=== PATIENT | female | born 1945 | race Asian ===

== ENCOUNTER 2016-08-05 21:09 | Outpatient (CLI) | payer MEDICARE, MEDICAID | END 2016-08-05 21:10 | disposition critical access hospital (66) | DX: R42 Dizziness and giddiness (principal); R11.2 Nausea with vomiting, unspecified; R51 Headache; R03.0 Elevated blood-pressure reading, without diagnosis of hypertension | CPT/HCPCS: A0425; A0429 ==

== ENCOUNTER 2016-08-05 21:25 | Inpatient (IN) | payer MEDICARE, MEDICAID ==
[2016-08-05] MEDS ORDERED: ONDANSETRON 4 MG/2 ML VIAL IVP STA (21:52)
[2016-08-05] MEDS ORDERED: SODIUM CHLORIDE 0.9% 500 ML IV STA (21:52)
[2016-08-05] MEDS ORDERED: ONDANSETRON 4 MG/2 ML VIAL ONE (21:58)
[2016-08-06] MEDS ORDERED: HYDROcod/ACETAM 5/325 MG TABLET PO PRN (01:10)
[2016-08-06] MEDS ORDERED: ONDANSETRON ODT 4 MG TABLET TL PRN (01:10)
[2016-08-06] MEDS ORDERED: ACETAMINOPHEN 325 MG TABLET PO PRN (01:10)
[2016-08-06] MEDS ORDERED: SODIUM CHLORIDE 0.9% 1,000 ML IV SCH ×2 (02:00→21:00)
[2016-08-06] MEDS: SODIUM CHLORIDE FLUSH 0.9% 10 ML SYRINGE IVP PRN (02:02)
[2016-08-06] MEDS: hydrALAZINE 25 MG TABLET PO PRN (02:48)
[2016-08-06] MEDS: SODIUM CHLORIDE FLUSH 0.9% 10 ML SYRINGE IVP SCH ×3 (06:34→21:11)
[2016-08-06] MEDS ORDERED: SACCHAROMYCES BOULARDII 250 MG CAPSULE PO SCH (08:00)
[2016-08-06] MEDS: SODIUM CHLORIDE 1 GM TABLET PO SCH ×2 (08:28→21:57)
[2016-08-06] MEDS: LOSARTAN 50 MG TABLET PO SCH ×2 (08:28→21:10)
[2016-08-06] MEDS: CARVEDILOL 12.5 MG TABLET PO SCH ×2 (08:28→21:08)
[2016-08-06] MEDS: POLYETHYLENE GLYCOL 3350 17 GM PACKET PO SCH (08:28)
[2016-08-06] MEDS: GABAPENTIN 300 MG CAPSULE PO SCH ×2 (08:28→21:10)
[2016-08-06] MEDS ORDERED: VALSARTAN 160 MG PO SCH (09:00)
[2016-08-06] MEDS ORDERED: NITROFURANTOIN MACROCRYSTAL 50 MG PO SCH (09:00)
[2016-08-07] MEDS: cefTRIAXone 1 GM in SODIUM CHLORIDE 0.9% MINIBAG 100 ML IV SCH ×2 (00:36→08:06)
[2016-08-07] MEDS: SODIUM CHLORIDE FLUSH 0.9% 10 ML SYRINGE IVP SCH ×3 (06:45→20:49)
[2016-08-07] MEDS: POLYETHYLENE GLYCOL 3350 17 GM PACKET PO SCH (08:05)
[2016-08-07] MEDS: GABAPENTIN 300 MG CAPSULE PO SCH ×2 (08:06→20:46)
[2016-08-07] MEDS: SODIUM CHLORIDE 1 GM TABLET PO SCH ×2 (08:06→20:47)
[2016-08-07] MEDS: CARVEDILOL 12.5 MG TABLET PO SCH ×2 (08:10→20:46)
[2016-08-07] MEDS: LOSARTAN 50 MG TABLET PO SCH ×2 (08:10→20:46)
[2016-08-07] MEDS ORDERED: MAGNESIUM SULFATE 1 GM in SODIUM CHLORIDE 0.9% 50 ML IV ONE (11:15)
[2016-08-07] MEDS: INSULIN ASPART 300 UNIT/3 ML PEN SUBQ SCH ×3 (11:45→20:47)
[2016-08-07] MEDS ORDERED: SODIUM CHLORIDE 0.9% 1,000 ML IV SCH (13:45)
[2016-08-07] MEDS ORDERED: MAGNESIUM SULFATE 2 GRAM 50 ML IV SCH (14:00)
[2016-08-07] MEDS ORDERED: MAGNESIUM SULFATE 2 GRAM 50 ML IV ONE (14:00)
[2016-08-08] MEDS: hydrALAZINE 25 MG TABLET PO PRN (00:07)
[2016-08-08] MEDS: SODIUM CHLORIDE FLUSH 0.9% 10 ML SYRINGE IVP SCH (06:52)
[2016-08-08] MEDS: INSULIN ASPART 300 UNIT/3 ML PEN SUBQ SCH ×2 (08:33→12:16)
[2016-08-08] MEDS: SODIUM CHLORIDE 1 GM TABLET PO SCH (08:39)
[2016-08-08] MEDS: cefTRIAXone 1 GM in SODIUM CHLORIDE 0.9% MINIBAG 100 ML IV SCH (08:39)
[2016-08-08] MEDS: POLYETHYLENE GLYCOL 3350 17 GM PACKET PO SCH (08:39)
[2016-08-08] MEDS: LOSARTAN 50 MG TABLET PO SCH (08:40)
[2016-08-08] MEDS: CARVEDILOL 12.5 MG TABLET PO SCH (08:40)
[2016-08-08] MEDS: GABAPENTIN 300 MG CAPSULE PO SCH (08:40)
[2016-08-08] MEDS: SODIUM CHLORIDE FLUSH 0.9% 10 ML SYRINGE IVP PRN (08:46)
[2016-08-08] MEDS ORDERED: MAGNESIUM OXIDE 400 MG TABLET PO SCH (12:00)
[2016-08-08] MEDS ORDERED: SULFAMETH/TRIMETH DS 800/160 MG TABLET PO SCH (12:30)
== END 2016-08-08 13:35 | disposition home health service (06) | DRG 644 ==
DX: E22.2 Syndrome of inappropriate secretion of antidiuretic hormone (principal); N39.0 Urinary tract infection, site not specified; B02.29 Other postherpetic nervous system involvement; E83.52 Hypercalcemia; E83.42 Hypomagnesemia; B96.89 Other specified bacterial agents as the cause of diseases classified elsewhere; E11.42 Type 2 diabetes mellitus with diabetic polyneuropathy; I10 Essential (primary) hypertension; E78.5 Hyperlipidemia, unspecified; F41.1 Generalized anxiety disorder; M19.90 Unspecified osteoarthritis, unspecified site; Z79.84 Long term (current) use of oral hypoglycemic drugs; Z79.82 Long term (current) use of aspirin; Z79.51 Long term (current) use of inhaled steroids; Z79.899 Other long term (current) drug therapy; Z85.72 Personal history of non-Hodgkin lymphomas; Z87.440 Personal history of urinary (tract) infections; Z66 Do not resuscitate

== ENCOUNTER 2016-08-17 14:30 | Outpatient (CLI) | payer MEDICARE, MEDICAID | END 2016-08-17 14:31 | DX: E22.2 Syndrome of inappropriate secretion of antidiuretic hormone (principal) ==

== ENCOUNTER 2016-08-17 14:30 | Outpatient (CLI) | payer MEDICARE, MEDICAID | END 2016-08-17 23:59 | disposition home or self-care (01) | DX: E83.42 Hypomagnesemia (principal); E83.52 Hypercalcemia ==

== ENCOUNTER 2016-08-19 14:21 | Outpatient (CLI) | payer MEDICARE, MEDICAID | END 2016-08-19 14:22 | DX: E87.5 Hyperkalemia (principal) ==

== ENCOUNTER 2016-09-02 08:50 | Outpatient (CLI) | payer MEDICARE, MEDICAID | END 2016-09-02 08:51 | disposition home or self-care (01) | DX: E22.2 Syndrome of inappropriate secretion of antidiuretic hormone (principal) ==

== ENCOUNTER 2016-09-08 21:14 | Emergency (ER) | payer MEDICARE, MEDICAID ==
--- NOTE | 2016-09-08 21:59 | XRAY Preliminary Report ---
Exam: XR Chest 1 View IMPRESSION: No change. No acute cardiopulmonary abnormality. [facility] SITE ID: [id number]
--- NOTE | 2016-09-08 22:01 | XRAY Report ---
EXAM: CHEST RADIOGRAPHY EXAM DATE: 09/08/2016 09:51 PM. CLINICAL HISTORY: Chest pain COMPARISON: 02/29/2016. TECHNIQUE: 1 view. FINDINGS: Lungs/Pleura: Low lung volumes. No significant change. Negative for edema or pneumothorax. Mediastinum: Heart size is upper normal. There is mild to moderate aortic arch atherosclerotic calcif ication and tortuosity. Other: None. IMPRESSION: No change. No acute cardiopulmonary abnormality. [facility] Referring Provider Line: [phone] SITE ID: [id number]
[2016-09-08 22:02] LABS: BASOPHILS % (AUTO) 0.8 %; EOSINOPHILS # (AUTO) 0.1 10^3/uL (0.0-0.7); EOSINOPHILS % (AUTO) 2.1 %; HCT - HEMATOCRIT 33.3 % (37.0-47.0); HGB - HEMOGLOBIN 11.1 g/dL (12.0-16.0); LYMPHOCYTES # (AUTO) 1.1 10^3/uL (1.5-3.5); LYMPHOCYTES % (AUTO) 22.9 %; MEAN CORPUSCULAR HEMOGLOBIN 29.3 pg (27.0-31.0); MEAN CORPUSCULAR HGB CONC 33.3 g/dL (32.0-36.0); MEAN CORPUSCULAR VOLUME 87.9 fL (81.0-99.0); MEAN PLATELET VOLUME 7.5 fL (7.9-10.8); MONOCYTES # (AUTO) 0.6 10^3/uL (0.0-1.0); MONOCYTES % (AUTO) 12.9 %; NEUTROPHILS # (AUTO) 2.9 10^3/uL (1.5-6.6); NEUTROPHILS % (AUTO) 61.3 %; NUCLEATED RED BLOOD CELLS AUTO 0.1 /100WBC; RED BLOOD COUNT 3.78 10^6/uL (4.20-5.40); RED CELL DISTRIBUTION WIDTH 14.8 % (12.0-15.0); UNCORRECTED WHITE BLOOD COUNT 4.8 x10^3/uL; WHITE BLOOD COUNT 4.8 x10^3/uL (4.8-10.8)
[2016-09-08 22:09] LABS: INR 0.9 (0.8-1.2); PT - PROTHROMBIN TIME 10.2 secs (9.9-12.6)
[2016-09-08 22:13] LABS: ALBUMIN/GLOBULIN RATIO 1.4 (1.0-2.2); BILIRUBIN,TOTAL 0.6 mg/dL (0.2-1.0); CALCIUM 9.9 mg/dL (8.5-10.3); CREATININE 0.6 mg/dL (0.4-1.0); MAGNESIUM 1.5 mg/dL (1.7-2.8); PHOSPHORUS 2.3 mg/dL (2.5-4.6); POTASSIUM 3.5 mmol/L (3.5-5.0); TOTAL PROTEIN 7.2 g/dL (6.7-8.2)
[2016-09-08 22:16] LABS: PARTIAL THROMBOPLASTIN TIME 29.1 secs (24.9-33.3)
--- NOTE | 2016-09-08 23:57 | ED Physician Documentation ---
History of Present Illness - Stated complaint Stated Complaint: ELEV BP - Chief complaint Chief Complaint: General - History obtained from History obtained from: Patient, Friend, Caregiver - History of Present Illness Timing: Today - Additonal information Additional information: Patient is a 71 year old female with a history of htn who was brought into the emergency department for high blood pressure. According to the caregiver patient had taken her evening medication. Patient stated that she had a mild headache so the caregiver checked the pressure and the systolic was 189. she gave 12.5mg of hctz, but the pressure didn't improve so she gave a second dose of 12.5. the blood pressure didn't change so she brought the patient to the emergency department for evaluation. Upon initial evaluation in the emergency department the blood pressure was 170 systolic. Patient denied any active complaints but stated that she had a little pain earlier when her pressure was high. Review of Systems Constitutional: denies: Fever, Chills Eyes: denies: Decreased vision, Photophobia Ears: denies: Ear pain, Drainage/discharge Nose: denies: Epistaxis Throat: denies: Dental pain / toothache, Oral lesions / sores, Sore throat Cardiac: reports: Chest pain / pressure. denies: Palpitations, Calf pain Respiratory: denies: Cough, Wheezing GI: denies: Nausea, Vomiting Skin: denies: Rash, Lesions Musculoskeletal: denies: Neck pain, Back pain, Extremity pain, Joint pain Neurologic: reports: Headache. denies: Generalized weakness, Focal weakness, Numbness Psychiatric: denies: Depressed, Suicidal Immunocompromised: denies: Immunocompromised PD PAST MEDICAL HISTORY - Past Medical History Cardiovascular: Hypertension, High cholesterol Respiratory: None Neuro: Headache/migraine, Peripheral neuropathy Endocrine/Autoimmune: Type 2 diabetes GI: GERD, GI bleed, Colon polyps, Diverticulitis, Cholelithiasis : Incontinence HEENT: Chronic vision loss, Chronic sinusitis Psych: Anxiety Musculoskeletal: Osteoarthritis Derm: None - Past Surgical History Past Surgical History: Yes General: Colonoscopy HEENT: Cataracts - Present Medications Home Medications: Ambulatory Orders Medication Instructions Recorded Confirmed Lovastatin [Mevacor] 20 mg PO HS 11/08/12 09/08/16 Aspirin [Aspir 81] 81 mg PO DAILY 12/12/13 09/08/16 Cranberry Fruit Concentrate 250 mg PO DAILY 09/19/15 09/08/16 [Cranberry] Gabapentin 300 mg ORAL BID 02/29/16 09/08/16 Ipratropium/Albuterol [Duoneb] 3 ml INH QID 03/01/16 09/08/16 Carvedilol [Coreg] 12.5 mg PO BID 08/06/16 09/08/16 Magnesium Oxide [Mag Ox] 400 mg PO BID #60 tablet 08/08/16 09/08/16 Linagliptin [Tradjenta] 5 mg PO DAILY 09/08/16 09/08/16 Nitrofurantoin [Macrobid] 100 mg PO Q6HR 09/08/16 09/08/16 Saccharomyces Boulardii [Florastor] 250 mg PO DAILY 09/08/16 09/08/16 Sodium Chloride 2 gm PO BID 09/08/16 09/08/16 Valsartan [Diovan] 160 mg PO DAILY PM 09/08/16 09/08/16 hydrALAZINE [Apresoline] 12.5 mg PO PRN 09/08/16 - Allergies Allergies/Adverse Reactions: Allergies Allergy/AdvReac Type Severity Reaction Status Date / Time No Known Drug Allergies Allergy Verified 09/08/16 21:35 - Social History Does the pt smoke?: No Smoking Status: Never smoker Does the pt drink ETOH?: No Does the pt have substance abuse?: No - Immunizations Immunizations are current?: Yes - POLST Patient has POLST: Yes PD ED PE NORMAL - Vitals Vital signs reviewed: Yes - General General: Alert and oriented X 3, No acute distress, Well developed/nourished - HEENT HEENT: Atraumatic, PERRL, Moist mucous membranes, Pharynx benign - Neck Neck: Supple, no meningeal sign, No JVD - Cardiac Cardiac: RRR, No murmur - Respiratory Respiratory: No respiratory distress - Abdomen Abdomen: Normal bowel sounds, Soft, Non tender - Derm Derm: Normal color, Warm and dry, No rash - Extremities Extremities: No deformity, No tenderness to palpate, No calf tenderness / cord - Neuro Neuro: Alert and oriented X 3, 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, No motor deficit, No sensory deficit, Normal speech - Psych Psych: Normal mood, Normal affect Results - Vitals Vitals: Vital Signs - 24 hr 09/08/16 09/08/16 09/08/16 21:18 22:40 23:14 Temperature 36.5 C Heart Rate 65 58 L 57 L Respiratory 18 16 17 Rate Blood Pressure 181/92 H 177/79 H 159/72 H O2 Saturation 99 98 98 09/08/16 09/09/16 23:24 00:08 Temperature 36.0 C L Heart Rate 60 61 Respiratory 18 19 Rate Blood Pressure 152/68 H 161/77 H O2 Saturation 98 99 Oxygen O2 Source Room air - EKG (time done) 2152 Rate: Rate (enter#) (61) Rhythm: NSR [place]: Normal Intervals: Normal [facility] QRS: Normal Ischemia: Normal ST segments Compare to prior EKG: Old EKG unavailable Computer interpretation: Disagree with computer - Labs Labs: Laboratory Tests 09/08/16 09/08/16 09/08/16 21:54 21:54 21:54 WBC 4.8 RBC 3.78 L Hgb 11.1 L Hct 33.3 L MCV 87.9 MCH 29.3 MCHC 33.3 RDW 14.8 Plt Count 191 MPV 7.5 L Neut # 2.9 Lymph # 1.1 L Trigg # 0.6 Eos # 0.1 Baso # 0.0 Absolute Nucleated RBC 0.00 Nucleated RBCs 0.1 PT 10.2 INR 0.9 APTT 29.1 Sodium 132 L Potassium 3.5 Chloride 95 L Carbon Dioxide 28 Anion Gap 9.0 BUN 8 Creatinine 0.6 Estimated GFR (MDRD) 99 Glucose 136 H Calcium 9.9 Phosphorus 2.3 L Magnesium 1.5 L Total Bilirubin 0.6 AST 27 ALT 15 Alkaline Phosphatase 62 Troponin I B-Natriuretic Peptide Total Protein 7.2 Albumin 4.2 Globulin 3.0 Albumin/Globulin Ratio 1.4 Lipase 44 09/08/16 09/08/16 09/08/16 21:54 21:54 23:25 WBC RBC Hgb Hct MCV MCH MCHC RDW Plt Count MPV Neut # Lymph # Trigg # Eos # Baso # Absolute Nucleated RBC Nucleated RBCs PT INR APTT Sodium Potassium Chloride Carbon Dioxide Anion Gap BUN Creatinine Estimated GFR (MDRD) Glucose Calcium Phosphorus Magnesium Total Bilirubin AST ALT Alkaline Phosphatase Troponin I < 0.04 < 0.04 B-Natriuretic Peptide 85 Total Protein Albumin Globulin Albumin/Globulin Ratio Lipase - Rads (name of study) chest x-ray Radiology: Final report received (no acute disease process) PD MEDICAL DECISION MAKING - ED course Complexity details: reviewed old records, reviewed results, re-evaluated patient , considered differential, d/w patient ED course: Patient was seen and examined at bedside. IV access was gained and labs were drawn. patient was well appearing and in no distress. patient's was a bit hypertensive in the 170s systolic. ekg was performed and showed no signs of ischemia. labs and chest x-ray were within normal limits. Patient's systolic pressure improved to 150s. Patient diagnostics, including two sets of troponins were within normal limits. Patient remained asymptomatic while in the emergency department. Patient required no further work up and was stable for discharge with outpatient follow up. Departure - Departure Disposition: Home, Self Care Clinical Impression: Hypertension Condition: Good Instructions: Hypertension Control Follow-Up: Valeriy Alonso MD [Primary Care Provider] - Tomorrow (re-evaluate blood pressure meds) Comments: Your diagnostics today were within normal limits. the blood pressure normalized on its own and there was no sign of end organ damage. you should continue with your current blood pressure management. You should call your pmd and schedule a follow up appointment. You may return to the emergency department at any time for new, worsening or uncontrollable symptoms. Discharge Date/Time: 09/09/16 00:10
[2016-09-09 00:08] VITALS: BP 161/77
== END 2016-09-09 00:10 | disposition home or self-care (01) ==
LOC: ED 21:14
DX: I10 Essential (primary) hypertension (principal); E78.00 Pure hypercholesterolemia, unspecified; E11.42 Type 2 diabetes mellitus with diabetic polyneuropathy; K21.9 Gastro-esophageal reflux disease without esophagitis; Z86.010 Personal history of colon polyps; M19.90 Unspecified osteoarthritis, unspecified site; Z79.82 Long term (current) use of aspirin
CPT/HCPCS: 36415; 71010; 80053; 83690; 83735; 83880; 84100; 84484; 85025; 85610; 85730; 93005; 93010; 99284; 99285

== ENCOUNTER 2016-09-21 08:40 | Outpatient (CLI) | payer MEDICARE, MEDICAID ==
[2016-09-21 13:46] LABS: CALCIUM 10.1 mg/dL (8.5-10.3); CREATININE 0.7 mg/dL (0.4-1.0); POTASSIUM 3.3 mmol/L (3.5-5.0)
== END 2016-09-21 08:41 | disposition home or self-care (01) ==
LOC: LAB.WCP 08:40
PROVIDERS: ATTEND Physician Assistant Medical
DX: E22.2 Syndrome of inappropriate secretion of antidiuretic hormone (principal)
CPT/HCPCS: 36415; 80048

== ENCOUNTER 2016-09-29 14:36 | Outpatient (CLI) | payer MEDICARE, MEDICAID ==
[2016-09-29 19:32] LABS: CALCIUM 10.3 mg/dL (8.5-10.3); CREATININE 0.7 mg/dL (0.4-1.0); MAGNESIUM 1.9 mg/dL (1.7-2.8); POTASSIUM 3.9 mmol/L (3.5-5.0)
== END 2016-09-29 14:37 ==
LOC: LAB.WCP 14:36
PROVIDERS: ATTEND Physician Assistant Medical
DX: E87.6 Hypokalemia (principal)
CPT/HCPCS: 36415; 80048; 83735